=== PATIENT | male | born 1960 | race African-American/Black ===

== ENCOUNTER 2017-06-14 20:58 | Emergency (ER) | payer OTHER ==
[~2017-06-14] VITALS: Ht 182.9 cm; Wt 107.5 kg
--- NOTE | 2017-06-14 21:03 | ED CARDIAC/CP/PALPITATIONS ---
History of Present Illness General Chief Complaint: Chest Pain Stated Complaint: PALPITATIONS WHILE WALKING Source: patient, EMS Exam Limitations: no limitations Vital Signs & Intake/Output Vital Signs & Intake/Output Vital Signs Date Time Temp Pulse Resp B/P B/P Pulse O2 O2 Flow FiO2 Mean Ox Delivery Rate 06/15 0052 98.6 66 18 136/74 99 Room Air 06/14 2338 98.8 66 18 138/87 99 06/14 2110 82 16 145/89 99 Room Air 06/14 2109 Room Air ED Intake and Output 06/15 0000 06/14 1200 Intake Total Output Total 250 Balance -250 Output, Urine 250 Patient 237 lb Weight Weight Reported by Patient Measurement Method Allergies Coded Allergies: Penicillins (Intermediate, SWELLING 06/14/17) codeine (Intermediate, SWELLING 06/14/17) Triage Nurses Notes Reviewed? yes Onset: Gradual Duration: hour(s): Timing: recent history Quality/Severity: mild Location: central Radiation: no radiation Activities at Onset: walking, resting Prior Chest Pain/Card Workup: no prior chest pain Modifying Factors: Improves With: rest. HPI: 56 yo gentleman h/o hypertension presents with several episodes of palpitations and lightheadedness, that last approximately 1-2 minutes, and then self resolve. He has no chest pain, syncopal type symptoms. He does not feel dehydration, has been eating well today. His symptoms were not resolved after drinking juice. "I thought I might have low blood sugar." 911 called. His ekg in the field was unremarkable. Glucose 129. He is presently feeling well. Past History Medical History Any Pertinent Medical History? see below for history Cardiovascular: hypertension Surgical History Surgical History: none Family History Hx Contributory? No Review of Systems Review of Systems Constitutional: Reports: no symptoms. EENTM: Reports: no symptoms. Respiratory: Reports: no symptoms. Cardiovascular: Reports: no symptoms. GI: Reports: no symptoms. Genitourinary: Reports: no symptoms. Musculoskeletal: Reports: no symptoms. Skin: Reports: no symptoms. Neurological/Psychological: Reports: no symptoms. Hematologic/Endocrine: Reports: no symptoms. Immunologic/Allergic: Reports: no symptoms. All Other Systems: Reviewed and Negative Physical Exam Physical Exam General Appearance: well developed/nourished, no apparent distress Head: atraumatic, normal appearance Eyes: Bilateral: normal appearance. Ears, Nose, Throat: normal pharynx, normal ENT inspection Neck: normal inspection, supple, full range of motion Respiratory: normal breath sounds, chest non-tender, no respiratory distress, quiet respiration, lungs clear Cardiovascular: regular rate/rhythm Gastrointestinal: normal bowel sounds, soft, non-tender, no organomegaly Back: normal inspection, normal range of motion Extremities: normal inspection, normal capillary refill, normal range of motion, no edema Neurologic/Psych: no motor/sensory deficits, awake, alert, oriented x 3 Skin: intact, normal color, warm/dry Core Measures ACS in differential dx? No CVA/TIA Diagnosis No Sepsis Present: No Sepsis Focused Exam Completed? No Progress Differential Diagnosis: dysrhythmia vs unstable angina vs other. Plan of Care: Orders Procedure Date/time Status TROPONIN LEVEL 06/14 2344 Complete EKG 06/14 2344 Active TROPONIN LEVEL 06/14 2102 Complete LIPASE 06/14 2102 Complete HEPATIC FUNCTION PANEL 06/14 2102 Complete D-DIMER 06/14 2102 Complete CBC WITHOUT DIFFERENTIAL 06/14 2102 Complete BASIC METABOLIC PANEL 06/14 2102 Complete AMYLASE 06/14 2102 Complete EKG 06/14 2102 Active Laboratory Tests 06/14/172346: Troponin I < 0.01 06/14/172110: Anion Gap 11, Estimated GFR > 60, BUN/Creatinine Ratio 18.9, Glucose 112 H, Calcium 9.4, Total Bilirubin 0.8, Direct Bilirubin 0.3, AST 33, ALT 44, Alkaline Phosphatase 65, Troponin I < 0.01, Total Protein 7.2, Albumin 4.3, Amylase 74, Lipase 107, D-Dimer High Sensitivty < 200, CBC w Diff NO MAN DIFF REQ, RBC 5.17, MCV 84.6, MCH 28.0, MCHC 33.0, RDW 13.2, MPV 7.4, Gran % 42.2, Lymphocytes % 45.8, Monocytes % 10.1 H, Eosinophils % 1.4, Basophils % 0.5, Absolute Granulocytes 2.5, Absolute Lymphocytes 2.7, Absolute Monocytes 0.6, Absolute Eosinophils 0.1, Absolute Basophils 0 Diagnostic Imaging: Viewed by Me: Radiology Read. Discussed w/RAD: Radiology Read. CXR Impression: PATIENT: CAMRON QUESADA PRESENT AGE: 56 PATIENT ACCOUNT NO: [id number] : 61 LOCATION: [facility] ORDERING PHYSICIAN: Sergio Carroll MD SERVICE DATE: 06/14/17 EXAM TYPE: RAD - XRY- PORTABLE CHEST XRAY EXAMINATION: XR PORTABLE CHEST CLINICAL INFORMATION: Chest pain. COMPARISON: None TECHNIQUE: Portable frontal view of the chest was obtained. FINDINGS: The lungs are clear. No pleural effusion. Cardiomediastinal silhouette and pulmonary vasculature are within normal limits. No acute osseous finding. IMPRESSION: No acute cardiopulmonary disease. DICTATED BY: Mekhi Harris MD DATE/TIME DICTATED:06/14/172144 PROPOSAL EDITOR:KAITY DATE/TIME TRANSCRIBED:06/14/172144 CONFIDENTIAL, DO NOT COPY WITHOUT APPROPRIATE AUTHORIZATION. <Electronically signed in Other Vendor System> SIGNED BY: Mekhi Harris MD 06/14/172148 Initial ED EKG: nsr, no acute changes Repeat EKG: unchanged Departure Departure Disposition: HOME OR SELF CARE Condition: Stable Clinical Impression Primary Impression: Palpitations Secondary Impressions: Dizziness Referrals: Vira Adams MD (PCP/Family) Departure Forms: Customer Survey General Discharge Information Comments 06/15/17, 23:20.... pt is asymptomatic in Ed... labs benign... await fololow up trop/ekg 06/15/17, 0:35... ekg/trop benign x 2... asymptomatic in the ED. safe for discharge with referral made to cards. Critical Care Note Critical Care Note Critical Care Time: non-applicable
[2017-06-14 21:35] LABS: ABSOLUTE BASOPHIL COUNT 0 /CUMM (0.0-0.2); ABSOLUTE EOSINOPHIL COUNT 0.1 /CUMM (0.0-0.7); ABSOLUTE GRANULOCYTE CT 2.5 /CUMM (1.4-6.5); ABSOLUTE LYMPH COUNT 2.7 /CUMM (1.2-3.4); ABSOLUTE MONOCYTE COUNT 0.6 /CUMM (0.10-0.60); BASOPHIL % 0.5 % (0.0-2.0); EOSINOPHIL % 1.4 % (0-5); GRANULOCYTE % 42.2 % (42.2-75.2); HEMATOCRIT 43.7 % (42-52); MEAN CORPUSCULAR VOLUME 84.6 FL (80.0-94.0); MEAN PLATELET VOLUME 7.4 FL (7.4-10.4); PLATELET COUNT 349 /CUMM (130-400); RBC DISTRIBUTION WIDTH 13.2 % (11.5-14.5); RED BLOOD CELL CT 5.17 /CUMM (4.70-6.10); WHITE BLOOD CELL COUNT 5.9 /CUMM (4.8-10.8)
--- NOTE | 2017-06-14 21:49 | RADIOLOGY REPORT ---
EXAMINATION: XR PORTABLE CHEST CLINICAL INFORMATION: Chest pain. COMPARISON: None TECHNIQUE: Portable frontal view of the chest was obtained. FINDINGS: The lungs are clear. No pleural effusion. Cardiomediastinal silhouette and pulmonary vasculature are within normal limits. No acute osseous finding. IMPRESSION: No acute cardiopulmonary disease.
[2017-06-15 00:52] VITALS: BP 136/74
== END 2017-06-15 00:54 ==
LOC: ERH 20:58
PROVIDERS: Pediatrics
DX: R00.2 Palpitations (principal); R42 Dizziness and giddiness
CPT/HCPCS: 71045; 93005; 93010